=== PATIENT | male | born 1995 | race Caucasian/White ===

== ENCOUNTER 2019-02-27 19:41 | Emergency (ER) | payer OTHER ==
[~2019-02-27] VITALS: Ht 180.3 cm; Wt 79.6 kg
[2019-02-27 19:45] VITALS: BP 120/76
--- NOTE | 2019-02-27 20:42 | NUR ---
DC EDUCATION PROVIDED, PT DEMONSTRATES UNDERSTANDING. PT AMBULATED STEADILY TO DC WITH RN AND FRIEND.
== END 2019-02-27 20:44 | disposition home or self-care (01) ==
LOC: ED 20:25
DX: S06.310A Contusion and laceration of right cerebrum without loss of consciousness, initial encounter (principal); S63.511A Sprain of carpal joint of right wrist, initial encounter; V86.99XA Unspecified occupant of other special all-terrain or other off-road motor vehicle injured in nontraffic accident, initial encounter; Y93.89 Activity, other specified; Y92.69 Other specified industrial and construction area as the place of occurrence of the external cause; Y99.0 Civilian activity done for income or pay
CPT/HCPCS: 29260; 99283